=== PATIENT | female | born 1975 | race Caucasian/White ===

== ENCOUNTER 2023-03-03 17:16 | Emergency (ER) | payer OTHER | END 2023-03-03 17:30 | disposition left against medical advice (07) | LOC: FER 17:16 | DX: R20.0 Anesthesia of skin (principal); R20.2 Paresthesia of skin ==

== ENCOUNTER 2023-03-12 17:09 | Emergency (ER) | payer OTHER ==
[2023-03-12 17:22] VITALS: BP 129/92; RESP 18; TEMP 98.2; BMI 29.2
[2023-03-12] MEDS ORDERED: METOCLOPRAMIDE HCL INJECTION 10 MG/2 ML VIAL IVPUSH ONE (17:46)
[2023-03-12] MEDS ORDERED: SODIUM CHLORIDE 500 ML IV STA ×2 (17:46→18:26)
[2023-03-12] MEDS ORDERED: ACETAMINOPHEN 1000 MG/100 ML BAG IVPB ONE (17:46)
[2023-03-12] MEDS ORDERED: METOCLOPRAMIDE HCL INJECTION 10 MG/2 ML VIAL ONE (18:31)
[2023-03-12] MEDS ORDERED: ACETAMINOPHEN INJECTION 100 ML IVPB ONE (18:31)
[2023-03-12 18:37] LABS: BASO % 0.6 % (0-2.0); EOS % 1.9 % (0-4.5); HEMATOCRIT 35.2 % (32.4-45.2); LYMPH % 27.4 % (8-40); MCH 29.9 pg (25.7-33.7); MONO % 6.1 % (3.8-10.2); PLATELET COUNT 253 10^3/uL (134-434); RDW 14.9 % (11.6-15.6); WHITE BLOOD COUNT 11.6 K/mm3 (4.0-10.0)
[2023-03-12 18:47] LABS: INR 0.99 (0.83-1.09); PROTHROMBIN TIME (PATIENT) 11.5 SEC (9.7-13.0)
[2023-03-12 18:56] LABS: POTASSIUM 4.5 mmol/L (3.5-5.1)
[2023-03-12 18:58] LABS: ALBUMIN 3.7 g/dl (3.4-5.0); BLOOD UREA NITROGEN 19.2 mg/dL (7-18); CALCIUM 9.5 mg/dL (8.5-10.1)
[2023-03-12 19:01] LABS: CREATININE 0.7 mg/dL (0.55-1.3)
[2023-03-12 19:03] LABS: BILIRUBIN,TOTAL 0.4 mg/dL (0.2-1); TOT PROT 7.6 g/dl (6.4-8.2)
[2023-03-12 20:11] LABS: EPI CELLS 12 /uL (0-25.1); HYALINE CASTS 1 /uL (0-3.1); URINE APPEARANCE CLEAR; URINE BACTERIA 589 /uL (0-1359); URINE BILIRUBIN NEGATIVE (NEGATIVE); URINE COLOR YELLOW; URINE GLUCOSE (UA) NEGATIVE (NEGATIVE); URINE KETONE NEGATIVE (NEGATIVE); URINE LEUK ESTERASE 1+ (NEGATIVE); URINE NITRITE NEGATIVE (NEGATIVE); URINE PROTEIN NEGATIVE (NEGATIVE); URINE RBC 5 /uL (0-23.9); URINE UROBILINOGEN 0.2 mg/dL (0.2-1.0); URINE WBC 29 /uL (0-25.8)
[2023-03-12] MEDS ORDERED: SODIUM CHLORIDE 0.9% 500 ML INFUS.BAG IV ONE (20:51)
[2023-03-12] MEDS ORDERED: CEFTRIAXONE 1,000 MG in DEXTROSE 5%-WATER - 50 ML IVPB ONE (20:51)
[2023-03-12 20:52] VITALS: PULSE 94
[2023-03-12] MEDS ORDERED: CEFTRIAXONE 1 GM/50 ML BAG ONE (20:53)
[2023-03-12] MEDS ORDERED: KETOROLAC TROMETHAMINE 15 MG/ML VIAL IVPUSH ONE (21:53)
[2023-03-12] MEDS ORDERED: KETOROLAC TROMETHAMINE 15 MG/ML VIAL ONE (21:58)
== END 2023-03-12 23:17 | disposition admitted as inpatient to this hospital (09) ==
LOC: JER 17:09
PROC: 3E03329 Introduction of Other Anti-infective into Peripheral Vein, Percutaneous Approach (ICD-10-PCS; principal; 2023-03-12)
PROC: 3E033GC Introduction of Other Therapeutic Substance into Peripheral Vein, Percutaneous Approach (ICD-10-PCS; 2023-03-12)
PROC: 3E033GC Introduction of Other Therapeutic Substance into Peripheral Vein, Percutaneous Approach (ICD-10-PCS; 2023-03-12)
PROC: 3E033GC Introduction of Other Therapeutic Substance into Peripheral Vein, Percutaneous Approach (ICD-10-PCS; 2023-03-12)
PROC: 3E033GC Introduction of Other Therapeutic Substance into Peripheral Vein, Percutaneous Approach (ICD-10-PCS; 2023-03-12)
PROC: 3E0337Z Introduction of Electrolytic and Water Balance Substance into Peripheral Vein, Percutaneous Approach (ICD-10-PCS; 2023-03-12)
PROC: 3E0337Z Introduction of Electrolytic and Water Balance Substance into Peripheral Vein, Percutaneous Approach (ICD-10-PCS; 2023-03-12)
DX: G43.909 Migraine, unspecified, not intractable, without status migrainosus (principal); N39.0 Urinary tract infection, site not specified
CPT/HCPCS: 36415; 70450-TC; 80053; 81003; 82550; 84484; 85025; 85610; 85730; 86850; 86900; 86901; 93005; 93010; 99285-25